=== PATIENT | female | born 1960 | race American Indian/Alaskan Native ===

== ENCOUNTER 2017-05-19 06:38 | Emergency (ER) | payer SELFPAY ==
[2017-05-19 07:23] VITALS: BP 153/96
[2017-05-19] MEDS ORDERED: NAPROSYN PO ONE (07:34)
[2017-05-19] MEDS ORDERED: DELTASONE PO ONE (07:34)
--- NOTE | 2017-05-19 07:39 | Emergency Department Report ---
ED General Adult HPI - General Chief complaint: Medical Clearance Stated complaint: PAIN OVER BODY Time Seen by Provider: 05/19/17 07:27 Source: patient Mode of arrival: Ambulatory Limitations: No Limitations - History of Present Illness Initial comments: PT states she ran out of her medication 1 week ago. PT states she has an appointment with [facility] on . PT states she was trying to wait until her appointment for medication refill. PT states her joints are hurting. PT states she has a hx of Rheumatoid arthritis and hypothyroidism. PT states she has been on her current medications for 5-6 years and has tolerated them without problems. PT states her joint pain is 9 /10. MD Complaint: Medication refill Onset/Timin -: Gradual, week(s) Severity scale (0 -10): 9 Quality: aching Consistency: constant Improves with: medication Worsens with: other (being off your medication x 1 week. ) Associated Symptoms: denies other symptoms. denies: cough, fever/chills, nausea /vomiting, rash, seizure, shortness of breath, syncope - Related Data Home Medications Medication Instructions Recorded Confirmed Last Taken Folic Acid [Folvite] 1 tab PO DAILY 05/19/17 05/19/17 Unknown Levothyroxine [Synthroid] 125 mcg PO QAM 05/19/17 05/19/17 Unknown Naproxen [Naprosyn] 500 mg PO BID 05/19/17 05/19/17 Unknown predniSONE [Deltasone] 20 mg PO QDAY 05/19/17 05/19/17 Unknown Previous Rx's Medication Instructions Recorded Last Taken Type Folic Acid 0.4 mg PO DAILY #14 tablet 05/19/17 Unknown Rx Levothyroxine [Synthroid] 125 mcg PO QAM #14 tablet 05/19/17 Unknown Rx Naproxen [Naprosyn] 500 mg PO BID #28 tablet 05/19/17 Unknown Rx predniSONE [Deltasone] 20 mg PO QDAY #14 tab 05/19/17 Unknown Rx Allergies Allergy/AdvReac Type Severity Reaction Status Date / Time No Known Allergies Allergy Verified 05/19/17 07:36 ED Review of Systems ROS: Stated complaint: PAIN OVER BODY Other details as noted in HPI Comment: All other systems reviewed and negative Constitutional: denies: chills, fever Respiratory: denies: cough, shortness of breath Cardiovascular: edema (pt states her joints feel swollen ). denies: chest pain Endocrine: denies: increased urine, unexplained weight gain Gastrointestinal: denies: abdominal pain, nausea, vomiting Musculoskeletal: joint swelling, arthralgia ED Past Medical Hx - Past Medical History Previous Medical History?: Yes Hx Arthritis: Yes (RA ) Additional medical history: Thyroid problems - Surgical History Past Surgical History?: Yes Additional Surgical History: Tubaligation, Thyroid removal - Social History Smoking Status: Unknown if ever smoked Substance Use Type: Non Opiate Pain, Prescribed - Medications Home Medications: Home Medications Medication Instructions Recorded Confirmed Last Taken Type Folic Acid 0.4 mg PO DAILY #14 tablet 05/19/17 Unknown Rx Folic Acid [Folvite] 1 tab PO DAILY 05/19/17 05/19/17 Unknown History Levothyroxine [Synthroid] 125 mcg PO QAM 05/19/17 05/19/17 Unknown History Levothyroxine [Synthroid] 125 mcg PO QAM #14 tablet 05/19/17 Unknown Rx Naproxen [Naprosyn] 500 mg PO BID 05/19/17 05/19/17 Unknown History Naproxen [Naprosyn] 500 mg PO BID #28 tablet 05/19/17 Unknown Rx predniSONE [Deltasone] 20 mg PO QDAY 05/19/17 05/19/17 Unknown History predniSONE [Deltasone] 20 mg PO QDAY #14 tab 05/19/17 Unknown Rx ED Physical Exam - General Limitations: No Limitations General appearance: alert, in no apparent distress - Head Head exam: Present: atraumatic, normocephalic, normal inspection - Eye Eye exam: Present: normal appearance. Absent: conjunctival injection Pupils: Present: normal accommodation - ENT ENT exam: Present: normal exam, mucous membranes moist, normal external ear exam - Neck Neck exam: Present: normal inspection, full ROM. Absent: tenderness, lymphadenopathy - Respiratory Respiratory exam: Present: normal lung sounds bilaterally. Absent: respiratory distress, wheezes, chest wall tenderness, accessory muscle use, decreased breath sounds - Cardiovascular Cardiovascular Exam: Present: regular rate, normal rhythm, normal heart sounds - GI/Abdominal GI/Abdominal exam: Present: soft. Absent: tenderness - Extremities Exam Extremities exam: Present: normal inspection, normal capillary refill. Absent: full ROM, tenderness - Expanded Upper Extremity Exam Left Shoulder Exam: Present: normal inspection, full ROM. Absent: tenderness Upper Arm exam: Present: normal inspection Elbow exam: Absent: full ROM (decreased extention of L elbow ), tenderness, swelling, crepidus Vascular: Present: radial pulse. Absent: vascular compromise Right Shoulder Exam: Present: normal inspection, full ROM Elbow exam: Present: normal inspection, full ROM. Absent: tenderness, swelling Vascular: Present: radial pulse. Absent: vascular compromise - Back Exam Back exam: Present: normal inspection, full ROM. Absent: tenderness, CVA tenderness (R), CVA tenderness (L), muscle spasm, paraspinal tenderness, vertebral tenderness - Neurological Exam Neurological exam: Present: alert, oriented X3, normal gait - Psychiatric Psychiatric exam: Present: normal affect, normal mood - Skin Skin exam: Present: warm, dry, intact, normal color ED Course Vital Signs 05/19/17 07:18 Temperature 98.8 F Pulse Rate 66 Respiratory 18 Rate Blood Pressure 153/96 O2 Sat by Pulse 98 Oximetry - Reevaluation(s) Reevaluation #1: 05/19/17 07:57 PT aware she will need to follow up with PCP for intermission coordinator management of her chronic medical conditions. - Pulse Oximetry Interpretation Digit-Finger Initial Pulse Oximetry Readin Actions Taken: none ED Medical Decision Making - Differential Diagnosis medication refill, RA flare Critical Care Time: No Critical care attestation.: If time is entered above; I have spent that time in minutes in the direct care of this critically ill patient, excluding procedure time. ED Disposition Clinical Impression: Arthralgia Qualifiers: Joint pain location: unspecified Qualified Code(s): M25.50 - Pain in unspecified joint Disposition: DC-01 TO HOME OR SELFCARE Is pt being admited?: No Does the pt Need Aspirin: No Condition: Stable Instructions: Hypothyroidism (ED), Rheumatoid Arthritis (ED) Additional Instructions: Recheck your bp at your follow up appointment Follow up with PCP as scheduled. Return to the ED if you noticed that your stool has become darker than normal or your are seeing blood when you have bm Prescriptions: Folic Acid 0.4 mg PO DAILY #14 tablet Levothyroxine [Synthroid] 125 mcg PO QAM #14 tablet Naproxen [Naprosyn] 500 mg PO BID #28 tablet predniSONE [Deltasone] 20 mg PO QDAY #14 tab Referrals: JAMI GARCIA MD [Staff Physician] - 3-5 Days [facility] [Outside] - 3-5 Days [facility] [Outside] - 3-5 Days Time of Disposition: 08:00
== END 2017-05-19 08:10 | disposition home or self-care (01) ==
LOC: ED 06:38
DX: M25.50 Pain in unspecified joint (principal)
CPT/HCPCS: 99282; J7512

== ENCOUNTER 2017-07-18 04:29 | Emergency (ER) | payer OTHER ==
[2017-07-18] MEDS ORDERED: DECADRON IM ONE (08:58)
--- NOTE | 2017-07-18 09:02 | Emergency Department Report ---
ED General Adult HPI - General Chief complaint: Pain General Stated complaint: ARTHRITIS PAIN OVER BODY Time Seen by Provider: 07/18/17 08:57 Source: patient Mode of arrival: Ambulatory Limitations: No Limitations - History of Present Illness Initial comments: 56-year-old female with history of rheumatoid arthritis presents to the ED complaining about joint pains to the bilateral hands and right knee. States that she normally takes prednisone and naproxen which provided relief. Denies new injury. Denies taking medication recently. Denies fever. -: Gradual, week(s) (2) Associated Symptoms: denies other symptoms. denies: confusion, chest pain, cough, diaphoresis, fever/chills, headaches, loss of appetite, malaise, rash - Related Data Home Medications Medication Instructions Recorded Confirmed Last Taken Folic Acid [Folvite] 1 tab PO DAILY 05/19/17 05/19/17 Unknown Levothyroxine [Synthroid] 125 mcg PO QAM 05/19/17 05/19/17 Unknown Naproxen [Naprosyn] 500 mg PO BID 05/19/17 05/19/17 Unknown predniSONE [Deltasone] 20 mg PO QDAY 05/19/17 05/19/17 Unknown Previous Rx's Medication Instructions Recorded Last Taken Type Folic Acid 0.4 mg PO DAILY #14 tablet 05/19/17 Unknown Rx Levothyroxine [Synthroid] 125 mcg PO QAM #14 tablet 05/19/17 Unknown Rx Naproxen [Naprosyn TAB] 500 mg PO BID #28 tablet 07/18/17 Unknown Rx predniSONE [Deltasone] 20 mg PO QDAY #14 tab 07/18/17 Unknown Rx Allergies Allergy/AdvReac Type Severity Reaction Status Date / Time No Known Allergies Allergy Verified 05/19/17 07:36 ED Review of Systems ROS: Stated complaint: ARTHRITIS PAIN OVER BODY Other details as noted in HPI Constitutional: denies: chills, fever Eyes: denies: eye pain, eye discharge, vision change ENT: denies: ear pain, throat pain Respiratory: denies: cough, shortness of breath, wheezing Cardiovascular: denies: chest pain, palpitations Endocrine: no symptoms reported Gastrointestinal: denies: abdominal pain, nausea, diarrhea Genitourinary: denies: urgency, dysuria, discharge Musculoskeletal: arthralgia. denies: back pain, joint swelling Skin: denies: rash, lesions Neurological: denies: headache, weakness, paresthesias Psychiatric: denies: anxiety, depression Hematological/Lymphatic: denies: easy bleeding, easy bruising ED Past Medical Hx - Past Medical History Previous Medical History?: Yes Hx Arthritis: Yes (RA ) Additional medical history: Thyroid problems - Surgical History Past Surgical History?: Yes Additional Surgical History: Tubaligation, Thyroid removal - Social History Smoking Status: Former Smoker Substance Use Type: None - Medications Home Medications: Home Medications Medication Instructions Recorded Confirmed Last Taken Type Folic Acid 0.4 mg PO DAILY #14 tablet 05/19/17 Unknown Rx Folic Acid [Folvite] 1 tab PO DAILY 05/19/17 05/19/17 Unknown History Levothyroxine [Synthroid] 125 mcg PO QAM 05/19/17 05/19/17 Unknown History Levothyroxine [Synthroid] 125 mcg PO QAM #14 tablet 05/19/17 Unknown Rx Naproxen [Naprosyn] 500 mg PO BID 05/19/17 05/19/17 Unknown History predniSONE [Deltasone] 20 mg PO QDAY 05/19/17 05/19/17 Unknown History Naproxen [Naprosyn TAB] 500 mg PO BID #28 tablet 07/18/17 Unknown Rx predniSONE [Deltasone] 20 mg PO QDAY #14 tab 07/18/17 Unknown Rx ED Physical Exam - General Limitations: No Limitations General appearance: alert, in no apparent distress - Head Head exam: Present: atraumatic, normocephalic - Eye Eye exam: Present: normal appearance - ENT ENT exam: Present: mucous membranes moist - Neck Neck exam: Present: normal inspection - Respiratory Respiratory exam: Present: normal lung sounds bilaterally. Absent: respiratory distress - Cardiovascular Cardiovascular Exam: Present: regular rate, normal rhythm. Absent: systolic murmur, diastolic murmur, rubs, gallop - GI/Abdominal GI/Abdominal exam: Present: soft, normal bowel sounds - Extremities Exam Extremities exam: Present: normal inspection, other (bilateral hands show swelling and tenderness to all fingers. Full range of motion. Right knee is also tender to palpation and slightly swollen. Full range of motion.) - Back Exam Back exam: Present: normal inspection - Neurological Exam Neurological exam: Present: alert, oriented X3 - Psychiatric Psychiatric exam: Present: normal affect, normal mood - Skin Skin exam: Present: warm, dry, intact, normal color. Absent: rash ED Course Vital Signs 07/18/17 04:56 Temperature 98.8 F Pulse Rate 82 Respiratory 18 Rate Blood Pressure 132/84 O2 Sat by Pulse 100 Oximetry ED Medical Decision Making - Medical Decision Making Patient is resting comfortably at this time. We'll start with Decadron injection in the ED and refill prednisone and approximately she can follow-up with PCP. No acute distress at this time. Critical care attestation.: If time is entered above; I have spent that time in minutes in the direct care of this critically ill patient, excluding procedure time. ED Disposition Clinical Impression: Rheumatoid arteritis, Arthralgia Disposition: - TO HOME OR SELFCARE Is pt being admited?: No Does the pt Need Aspirin: No Condition: Good Instructions: Rheumatoid Arthritis (ED) Prescriptions: Naproxen [Naprosyn TAB] 500 mg PO BID #28 tablet predniSONE [Deltasone] 20 mg PO QDAY #14 tab Referrals: PRIMARY CARE, [Primary Care Provider] - 3-5 Days Forms: Work/School Release Form(ED) Time of Disposition: 09:02
[2017-07-18 09:21] VITALS: BP 124/78
== END 2017-07-18 09:21 | disposition home or self-care (01) ==
LOC: ED 04:29
DX: M06.9 Rheumatoid arthritis, unspecified (principal); Z87.891 Personal history of nicotine dependence
CPT/HCPCS: 96372; 99282; J1100